=== PATIENT | female | born 1960 | race Two or more races ===

== ENCOUNTER 2016-11-13 17:12 | Emergency (ER) | payer SELFPAY ==
[~2016-11-13] VITALS: Ht 170.2 cm; Wt 73.1 kg
[2016-11-13] MEDS ORDERED: MOTRIN600 MG PO (19:10)
[2016-11-13] MEDS ORDERED: PERCOCET 5/31 TABLET PO (19:10)
[2016-11-13 19:30] VITALS: BP 160/86
== END 2016-11-13 19:30 | disposition home or self-care (01) ==
LOC: EME 17:12
PROC: 2W3QX1Z Immobilization of Right Lower Leg using Splint (ICD-10-PCS; principal; 2016-11-13)
DX: S82.491A Other fracture of shaft of right fibula, initial encounter for closed fracture (principal); W01.0XXA Fall on same level from slipping, tripping and stumbling without subsequent striking against object, initial encounter
CPT/HCPCS: 73610; 99281; 99283

== ENCOUNTER 2017-01-01 17:35 | Emergency (ER) | payer SELFPAY ==
[~2017-01-01] VITALS: Ht 165.1 cm; Wt 74.0 kg
[~2017-01-01 17:35] MED LIST: MOTRIN600 MG PO; PERCOCET 5/31 TABLET PO
[2017-01-01 18:10] VITALS: BP 138/76
[2017-01-01] MEDS ORDERED: MOTRIN600 MG PO (20:49)
== END 2017-01-01 21:00 | disposition home or self-care (01) ==
LOC: EME 17:35
DX: S63.92XA Sprain of unspecified part of left wrist and hand, initial encounter (principal); W01.0XXA Fall on same level from slipping, tripping and stumbling without subsequent striking against object, initial encounter
CPT/HCPCS: 73130; 99281; 99283